=== PATIENT | female | born 1945 | race Caucasian/White ===

== ENCOUNTER → 2017-10-31 | Outpatient (CLI) | payer OTHER ==
[~2017-10-31] MED LIST: ADVA250A INH; ALPR.25 PO; CEPH500C3 PO; HYZA100T2 PO; LEVO.05 PO
--- NOTE | 2017-11-04 08:06 | RSPPFT ---
DATE OF PROCEDURE: 10/31/17 COMMENTS: VOLUMES DYNAMIC: FVC mildly reduced; FEV1 severely reduced. STATIC: FRC and RV moderately increased; TLC normal. FLOWS: FEV1% and FEF 25-75 severely reduced. DIFFUSION: Moderately reduced. FLOW VOLUME LOOP: Pattern of variable intrathoracic airways obstruction. IMPRESSION: Moderately severe to severe obstructive ventilatory defect with reduction in diffusion consistent with emphysema. There is also hyperinflation. There is significant improvement post-bronchodilator.
== END ==
LOC: PHRSP 08:45
PROVIDERS: ATTEND Internal Medicine
DX: J44.9 Chronic obstructive pulmonary disease, unspecified (principal)
CPT/HCPCS: 94060; 94618; 94726; 94729

== ENCOUNTER 2017-11-22 22:24 | Inpatient (IN) | payer OTHER, MEDICARE ==
[~2017-11-22] VITALS: Ht 160 cm; Wt 52.5 kg
[2017-11-22] MEDS ORDERED: IOHEXOL 350 MG/ML 10 ML VIAL (for RAD DIAG) IVCONTRAST ONE (22:25)
[2017-11-22 22:45] VITALS: BP 146/72; PULSE 87; RESP 16; TEMP 98.8; O2SAT 94
[2017-11-22] MEDS ORDERED: SODIUM CHLOR 0.9% 1000 ML INJ 1,000 ML IV SCH (22:52)
[2017-11-22] MEDS ORDERED: MORPHINE SULFATE 4 MG/ML INJ IV PUSH ONE (23:00)
[2017-11-22] MEDS ORDERED: ONDANSETRON HCL 4 MG/2 ML VIAL IVP ONE (23:00)
[2017-11-22] MEDS ORDERED: SODIUM CHLORIDE 0.9% FLUSH 10 ML FLUSH IV FLUSH PRN (23:00)
[2017-11-22 23:21] LABS: AUTOMATED NEUTROPHIL # 8.3 TH/MM3 (1.8-7.7); BASOPHIL # 0.3 TH/MM3 (0-0.2); BASOPHIL % 3.1 % (0.0-2.0); EOSINOPHIL # 0.1 TH/MM3 (0-0.4); EOSINOPHIL % 0.5 % (0.0-4.0); HEMATOCRIT 41.5 % (35.0-46.0); HEMOGLOBIN 13.8 GM/DL (11.6-15.3); LYMPH % 9.5 % (9.0-44.0); MEAN CELL VOLUME 87.8 FL (80.0-100.0); MEAN CORPUSCULAR HEMOGLOBIN 29.1 PG (27.0-34.0); MEAN CORPUSCULAR HGB CONC 33.1 % (32.0-36.0); MEAN PLATELET VOLUME 7.2 FL (7.0-11.0); MONO % 4.9 % (0.0-8.0); MONOCYTE # 0.5 TH/MM3 (0-0.9); PLATELET COUNT 439 TH/MM3 (150-450); RED BLOOD COUNT 4.73 MIL/MM3 (4.00-5.30); RED CELL DISTRIBUTION WIDTH 13.4 % (11.6-17.2); WHITE BLOOD COUNT 10.2 TH/MM3 (4.0-11.0)
[2017-11-22] MEDS ORDERED: ALBU0.63 NEB (23:21)
[2017-11-22] MEDS ORDERED: AMLO5TAB2 PO (23:21)
[2017-11-22] MEDS ORDERED: ALPR0.25 PO (23:21)
[2017-11-22] MEDS ORDERED: CHOL1TAB42 (23:21)
[2017-11-22] MEDS ORDERED: LEVO50TA4 PO (23:21)
[2017-11-22] MEDS ORDERED: HUMIBIDDM PO (23:21)
[2017-11-22] MEDS ORDERED: CYAN1000P IM (23:21)
[2017-11-22] MEDS ORDERED: ALPR0.5T3 PO (23:21)
[2017-11-22] MEDS ORDERED: OMEP20TA93 PO (23:21)
[2017-11-22] MEDS ORDERED: VENTAER INH (23:21)
[2017-11-22] MEDS ORDERED: ADVA100A INH (23:21)
[2017-11-22 23:51] VITALS: BP 142/78; PULSE 97; RESP 18; O2SAT 99
[2017-11-22 23:52] LABS: ALKALINE PHOSPHATASE 98 U/L (45-117); ALT (GPT) 19 U/L (10-53); AST (GOT) 22 U/L (15-37); BLOOD UREA NITROGEN 7 MG/DL (7-18); CALCIUM 9.3 MG/DL (8.5-10.1); CHLORIDE 96 MEQ/L (98-107); GLOMERULAR FILTRATION RATE 98 ML/MIN (>89); GLUCOSE,RANDOM 109 MG/DL (74-106); SODIUM (NA) 133 MEQ/L (136-145); TOTAL BILIRUBIN ADULT 0.6 MG/DL (0.2-1.0); TOTAL PROTEIN 8.1 GM/DL (6.4-8.2); TROPONIN I LESS THAN 0.02 NG/ML (0.02-0.05)
--- NOTE | 2017-11-22 23:54 | PD ---
HPI Chief Complaint: Abdominal Pain Time Seen by Provider: 22:40 Travel History International Travel<30 days: No Contact w/Intl Traveler<30days: No Traveled to known affect area: No History of Present Illness HPI 72-year-old female with a past medical history of Crohn's, COPD, small bowel resection 15 years ago as complications of Crohn's disease presents to the emergency room with epigastric abdominal pain radiating into the back. Pain is moderate in intensity with associated nausea and vomiting however denies diarrhea. Pain started around noon today. Patient denies any history of peptic ulcer disease or AAA. Patient denies any lower extremity pain. Patient denies any chest pain or shortness of breath at this time. Pain is worse with eating PFSH Past Medical History Asthma: Yes Anxiety: Yes Cancer: Yes (RT BREAST>RADIATION) COPD: Yes Gastrointestinal Disorders: Yes (CROHNS) Hypertension: Yes Respiratory: Yes (COPD) Radiation Therapy: Yes Thyroid Disease: Yes Tetanus Vaccination: Unknown Influenza Vaccination: Yes ?: Not Menopausal: Yes Past Surgical History Abdominal Surgery: Yes (COLON RESECTION X 3>CROHNS) Gynecologic Surgery: Yes (RT BREAST CA>LUMPECTOMY, RADIATION 15 YRS AGO) Tonsillectomy: Yes Other Surgery: Yes (RT LYMPH NODES) Social History Alcohol Use: Yes (WINE TWICE PER [facility]) Tobacco Use: No Substance Use: No Allergies-Medications (Allergen,Severity, Reaction): Coded Allergies: No Known Allergies (Verified Allergy, Unknown, 11/23/17) Reported Meds & Prescriptions Reported Meds & Active Scripts Active Reported Mucinex DM (Dextromethorphan-Guaifenesin) 30-600 Mg Tab 1 Tab PO BID PRN Albuterol Neb (Albuterol Sulfate) 0.63 Mg/3 Ml Neb 0.83 Mg NEB Q6HR NEB PRN Alprazolam 0.5 Mg Tab 0.5 Mg PO DAILY PRN Alprazolam 0.25 Mg Tab 0.25 Mg PO DAILY PRN Cyanocobalamin Inj (Cyanocobalamin) 1,000 Mcg/Ml Inj 1,000 Mcg IM Q30D Ventolin Hfa 18 GM Inh (Albuterol Sulfate) 90 Mcg/Act Aer 2 Puff INH Q4-6H PRN Omeprazole 20 Mg Tab 20 Mg PO DAILY Amlodipine (Amlodipine Besylate) 5 Mg Tab 5 Mg PO DAILY Vitamin D-3 (Cholecalciferol) 2,000 Unit Tab Levothyroxine (Levothyroxine Sodium) 50 Mcg Tab 50 Mcg PO DAILY Advair Diskus Inh (Fluticasone-Salmeterol Inh) 100-50 Mcg/Blist Aer 1 Puff INH BID Rinse mouth after use. Review of Systems Except as stated in HPI: all other systems reviewed are Neg General / Constitutional: No: Fever, Chills Eyes: No: Blurred Vision, Redness, Pain HENT: No: Rhinorrhea, Congestion, Neck Stiffness, Neck Pain, Earache Cardiovascular: No: Chest Pain or Discomfort, Palpitations, Dyspnea on exertion Respiratory: No: Cough, Shortness of Breath, Wheezing Gastrointestinal: Positive: Nausea, Vomiting, Abdominal Pain, No: Diarrhea, Hematochezia, Constipation Genitourinary: No: Dysuria Musculoskeletal: Positive: Other (Back pain), No: Myalgias Skin: No Rash, No Hives Neurologic: No: Weakness, Dizziness, Syncope, Headache, Slurred Speech, Seizures Psychiatric: No: Suicidal Ideations Physical Exam Narrative Vital Signs Date Time Temp Pulse Resp B/P (MAP) Pulse Ox O2 Delivery O2 Flow Rate FiO2 11/22/17 22:45 98.8 87 16 146/72 (96) 94 GENERAL: Patient is alert and oriented -3 SKIN: Focused skin assessment warm/dry. HEAD: Atraumatic. Normocephalic. EYES: Pupils equal and round. No scleral icterus. No injection or drainage. ENT: No nasal bleeding or discharge. Mucous membranes pink and moist. NECK: Trachea midline. No JVD. CARDIOVASCULAR: Regular rate and rhythm. No murmur appreciated. RESPIRATORY: No accessory muscle use. Clear to auscultation. Breath sounds equal bilaterally. GASTROINTESTINAL: Abdomen soft, tender epigastric area to palpation without guarding, nondistended. Hepatic and splenic margins not palpable. MUSCULOSKELETAL: No obvious deformities. No clubbing. No cyanosis. No edema. NEUROLOGICAL: Awake and alert. No obvious cranial nerve deficits. Motor grossly within normal limits. Normal speech. PSYCHIATRIC: Appropriate mood and affect; insight and judgment normal. Data Data Last Documented VS Vital Signs Date Time Temp Pulse Resp B/P (MAP) Pulse Ox O2 Delivery O2 Flow Rate FiO2 11/23/17 01:24 85 16 130/67 (88) 97 Room Air 11/22/17 22:45 98.8 Orders Orders Complete Blood Count With Diff (11/22/17 22:52) Comprehensive Metabolic Panel (11/22/17 22:52) Lactic Acid (11/22/17 22:52) Iv Access Insert/Monitor (11/22/17 22:52) Ecg Monitoring (11/22/17 22:52) Oximetry (11/22/17 22:52) Morphine Inj (Morphine Inj) (11/22/17 23:00) Ondansetron Inj (Zofran Inj) (11/22/17 23:00) Sodium Chlor 0.9% 1000 Ml Inj (Ns 1000 M (11/22/17 22:52) Sodium Chloride 0.9% Flush (Ns Flush) (11/22/17 23:00) Electrocardiogram (11/22/17 22:52) Chest, Single Ap (11/22/17 ) Troponin I (11/22/17 22:52) Ct Abd/Pel W Iv Contrast(Rout) (11/23/17 ) Potassium Chloride (Kcl) (11/23/17 00:00) Hydromorphone Pf Inj (Dilaudid Pf Inj) (11/23/17 00:15) Iohexol 350 Inj (Omnipaque 350 Inj) (11/22/17 22:25) Us Abdomen Gallbladder (11/23/17 ) Ondansetron Inj (Zofran Inj) (11/23/17 01:30) Admit Order (Ed Use Only) (11/23/17 01:42) Dextrose 5%-Lactate... W/Potassium Chlor (11/23/17 01:45) Potassium Chlor 10 Meq Premix (Kcl 10 Me (11/23/17 01:45) Place In Observation (11/23/17 ) Vital Signs (Adult) Q4H (11/23/17 01:40) Activity Oob With Assistance (11/23/17 01:40) Diet Npo (11/23/17 Breakfast) Sodium Chlor 0.9% 1000 Ml Inj (Ns 1000 M (11/23/17 01:40) Sodium Chloride 0.9% Flush (Ns Flush) (11/23/17 01:45) Sodium Chloride 0.9% Flush (Ns Flush) (11/23/17 09:00) Ondansetron Inj (Zofran Inj) (11/23/17 01:45) Comprehensive Metabolic Panel (11/24/17 06:00) Complete Blood Count With Diff (11/24/17 06:00) Naloxone Inj (Narcan Inj) (11/23/17 01:45) Docusate Sodium-Senna (Ignacia-Colace) (11/23/17 09:00) Magnesium Hydroxide Liq (Milk Of Magnesi (11/23/17 01:45) Sennosides (Senokot) (11/23/17 01:45) Bisacodyl Supp (Dulcolax Supp) (11/23/17 01:45) Lactulose Liq (Lactulose Liq) (11/23/17 01:45) Hydromorphone Pf Inj (Dilaudid Pf Inj) (11/23/17 01:45) Labs Laboratory Tests Test 11/22/17 23:10 White Blood Count 10.2 TH/MM3 Red Blood Count 4.73 MIL/MM3 Hemoglobin 13.8 GM/DL Hematocrit 41.5 % Mean Corpuscular Volume 87.8 FL Mean Corpuscular Hemoglobin 29.1 PG Mean Corpuscular Hemoglobin Concent 33.1 % Red Cell Distribution Width 13.4 % Platelet Count 439 TH/MM3 Mean Platelet Volume 7.2 FL Neutrophils (%) (Auto) 82.0 % Lymphocytes (%) (Auto) 9.5 % Monocytes (%) (Auto) 4.9 % Eosinophils (%) (Auto) 0.5 % Basophils (%) (Auto) 3.1 % Neutrophils # (Auto) 8.3 TH/MM3 Lymphocytes # (Auto) 1.0 TH/MM3 Monocytes # (Auto) 0.5 TH/MM3 Eosinophils # (Auto) 0.1 TH/MM3 Basophils # (Auto) 0.3 TH/MM3 CBC Comment DIFF FINAL Differential Comment Blood Urea Nitrogen 7 MG/DL Creatinine 0.60 MG/DL Random Glucose 109 MG/DL Total Protein 8.1 GM/DL Albumin 4.0 GM/DL Calcium Level 9.3 MG/DL Alkaline Phosphatase 98 U/L Aspartate Amino Transf (AST/SGOT) 22 U/L Alanine Aminotransferase (ALT/SGPT) 19 U/L Total Bilirubin 0.6 MG/DL Sodium Level 133 MEQ/L Potassium Level 2.8 MEQ/L Chloride Level 96 MEQ/L Carbon Dioxide Level 27.0 MEQ/L Anion Gap 10 MEQ/L Estimat Glomerular Filtration Rate 98 ML/MIN Lactic Acid Level 0.9 mmol/L Troponin I LESS THAN 0.02 NG/ML Last 24 hours Impressions Gall Bladder Ultrasound 11/23/17 Signed Impressions: CONCLUSION: Abnormal appearance of gallbladder. Cholelithiasis along with wall thickening a nd a small amount of pericholecystic fluid. Constellation of findings may be se en with acute cholecystitis in the proper clinical setting. Abdomen/Pelvis CT 11/23/17 Signed Impressions: CONCLUSION: 1. Distended gallbladder with diffuse wall thickening indicating possible chol ecystitis. Ultrasound could performed for more sensitive detection of gallstone s. 2. Mild distal ileal wall thickening and with minimal adjacent inflammatory ch radha. 3. Diffuse atherosclerotic disease with mild relative dilatation of the distal abdominal aorta measuring up to 2.5 cm in diameter. Chest X-Ray 11/22/17 Signed Impressions: CONCLUSION: No acute cardiopulmonary disease identified. MDM Medical Decision Making Medical Screen Exam Complete: Yes Emergency Medical Condition: Yes Medical Record Reviewed: Yes Differential Diagnosis Peptic ulcer disease, Crohn's, gallbladder disease, AAA, gastroenteritis, small bowel obstruction, ACS, Narrative Course Patient continued to have nausea vomiting and abdominal pain. Patient will be admitted to medicine for acute cholecystitis and intractable vomiting. Physician Communication Physician Communication Case has been discussed with Dr. Stephens and she accepted admission Diagnosis Primary Impression: Acute cholecystitis Additional Impressions: Intractable vomiting Hypokalemia Condition: Lloyd Gomez MD Nov 22, 2017 23:54
[2017-11-23] VITALS (13 sets, daily range): BP systolic 119–162; BP diastolic 63–71; PULSE 85–106; RESP 16–22; TEMP 96.7–100; O2SAT 91–97
[2017-11-23] MEDS ORDERED: HYDROmorphone HCL PF 1 MG/ML VIAL IV PUSH ONE
[2017-11-23] MEDS ORDERED: POTASSIUM CHLORIDE 20 MEQ CONTROLLED RELEASE TAB PO ONE
[2017-11-23] MEDS ORDERED: HYDROmorphone HCL PF 0.5 MG/0.5 ML SYRINGE IV PUSH ONE (00:15)
--- NOTE | 2017-11-23 00:29 | RADRPT ---
EXAM DATE: 11/23/2017 12:20 AM EDT AGE/SEX: 72 years / Female INDICATIONS: Abdominal pain. History of Croh's disease. CLINICAL DATA: This is the patient's initial encounter. Patient reports that signs and symptoms have been present for 1 day and indicates a pain score of 8/10. MEDICAL/SURGICAL HISTORY: Hypertension. Chronic obstructive pulmonary disease. Carcinoma, stoney ast. Colon resection. Right lumpectomy ORAL CONTRAST: No oral contrast ingested. RADIATION DOSE: 5.98 CTDI (mGy) COMPARISON: No prior exams available for comparison. TECHNIQUE: Multiple contiguous axial images were obtained through the abdomen and pelvis following b olus infusion of 90 ml Omnipaque 350 (iohexol) nonionic water-soluble contrast as a single exam dos e. No oral contrast ingested. Using automated exposure control and adjustment of the mA and/or kV ac cording to patient size, the radiation dose was kept as low as reasonably achievable to obtain optima l diagnostic quality images. FINDINGS: Lower Lungs: The visualized lower lungs are clear. Liver: Distended gallbladder with diffuse wall thickening measuring up to 6 mm. No calcified gallston es identified. The liver has a homogeneous density without space-occupying lesion. There is no dilati on of the biliary tree. Spleen: Homogeneous density without enlargement. Pancreas: Unremarkable without mass or calcification. Kidneys: Normal in size and shape. No evidence of mass or hydronephrosis. Adrenal Glands: Unremarkable. Aorta: Diffuse aortic calcification. Distal abdominal aorta shows mild relative dilatation but anthony ures 2.5 cm in greatest AP dimension that does not meet size criteria for aneurysm. Bowel/Mesentery: Mild nonspecific wall thickening of the distal ileum with mild stranding opacity in the adjacent fat. No evidence of bowel dilatation. No free air or free fluid. Postsurgical findings of the cecum. Abdominal Wall: Intact. Retroperitoneum: No evidence of adenopathy in the retrocrural, para-aortic, or deep pelvic regions. Bladder: Contours are smooth. Reproductive Organs: No abnormal masses or calcifications seen. Inguinal: The inguinal region is unremarkable without evidence of adenopathy. Bony Structures: Unremarkable. CONCLUSION: 1. Distended gallbladder with diffuse wall thickening indicating possible cholecystitis. Ultrasound could performed for more sensitive detection of gallstones. 2. Mild distal ileal wall thickening and with minimal adjacent inflammatory change. 3. Diffuse atherosclerotic disease with mild relative dilatation of the distal abdominal aorta measu ring up to 2.5 cm in diameter. Electronically signed by: Vicente Kendrick MD 11/23/2017 12:28 AM EDT
--- NOTE | 2017-11-23 00:39 | RADRPT ---
EXAM DATE: 11/23/2017 12:32 AM EDT AGE/SEX: 72 years / Female INDICATIONS: Chest pain. CLINICAL DATA: This is the patient's initial encounter. Patient reports that signs and symptoms have been present for 1 day and indicates a pain score of 4/10. MEDICAL/SURGICAL HISTORY: None. None. COMPARISON: POI, XR CHEST PA AND LAT, 01/25/2017. . FINDINGS: Single AP view of the chest. The lungs are clear. Cardiomediastinal silhouette within norm al limits. No evidence of pleural effusion or pneumothorax. CONCLUSION: No acute cardiopulmonary disease identified. Electronically signed by: Vicente Kendrick MD 11/23/2017 12:38 AM EDT
[2017-11-23] MEDS ORDERED: ONDANSETRON HCL 4 MG/2 ML VIAL IV PUSH ONE (01:30)
[2017-11-23] MEDS ORDERED: HYDROmorphone HCL PF 1 MG/ML VIAL IV PUSH PRN (01:45)
[2017-11-23] MEDS ORDERED: BISACODYL 10 MG SUPP RECTAL PRN (01:45)
[2017-11-23] MEDS ORDERED: LACTULOSE SYRUP 20 GM/30 ML CUP PO PRN (01:45)
[2017-11-23] MEDS ORDERED: SENNOSIDES 8.6 MG TAB PO PRN (01:45)
[2017-11-23] MEDS ORDERED: SODIUM CHLORIDE 0.9% FLUSH 10 ML FLUSH IV FLUSH PRN (01:45)
[2017-11-23] MEDS ORDERED: POTASSIUM CHLORIDE IV SCH (01:45)
[2017-11-23] MEDS ORDERED: NALOXONE HCL 0.4 MG/ML AMP IV PUSH PRN (01:45)
[2017-11-23] MEDS ORDERED: LACTATED RING IV SCH (01:45)
[2017-11-23] MEDS ORDERED: MAGNESIUM HYDROXIDE SUSP 30 ML CUP PO PRN (01:45)
[2017-11-23] MEDS ORDERED: DEXTROSE 5% IV SCH (01:45)
[2017-11-23] MEDS: SODIUM CHLOR 0.9% 1000 ML INJ 1,000 ML IV SCH ×2 (02:29→17:19)
[2017-11-23] MEDS: POTASSIUM CHLOR 10 MEQ PREMIX 100 ML IV SCH ×3 (02:29→05:49)
[2017-11-23] MEDS: ONDANSETRON HCL 4 MG/2 ML VIAL IVP PRN ×2 (02:35→16:27)
--- NOTE | 2017-11-23 03:03 | RADRPT ---
EXAM DATE: 11/23/2017 2:54 AM EDT AGE/SEX: 72 years / Female INDICATIONS: Right upper quadrant pain. CLINICAL DATA: This is the patient's initial encounter. Patient reports that signs and/or symptoms h ave been present for 1 day and indicates a pain score of 7/10. MEDICAL/SURGICAL HISTORY: Crohn's disease. Hypertension. Chronic obstructive pulmonary disease. Ca rcinoma, breast. . Colon resection. Right lumpectomy COMPARISON: No prior exams available for comparison. MEASUREMENTS (cm x cm x cm): Liver:__ 18.3 cm length Common Bile Duct:__ 4mm FINDINGS: Liver: Normal echotexture without focal lesion or ductal dilatation. Portal Vein: Hepatopedal flow seen in portal vein. Common Duct: No intraluminal mass or stone visualized. Gallbladder: Multiple small mobile shadowing gallstones at the dependent portion of the gallbladder. Layering sludge is also seen at the dependent portion of the gallbladder. Gallbladder wall thickenin g is seen measuring up to 4 mm. Small amount of pericholecystic fluid also noted. Pancreas: The visualized portions are within normal limits Right Kidney: No mass or hydronephrosis Other: None. CONCLUSION: Abnormal appearance of gallbladder. Cholelithiasis along with wall thickening and a small amount of p ericholecystic fluid. Constellation of findings may be seen with acute cholecystitis in the proper cl inical setting. Electronically signed by: Vicente Kendrick MD 11/23/2017 3:02 AM EDT
[2017-11-23] MEDS ORDERED: PROCHLORPERAZINE INJ 10 MG/2 ML VIAL IV PUSH PRN (03:30)
[2017-11-23] MEDS: PIPERACIL-TAZO 3.375 GM PREMIX 50 ML IV SCH ×4 (04:15→22:30)
[2017-11-23] MEDS: HYDROmorphone HCL PF 0.5 MG/0.5 ML SYRINGE IV PUSH PRN ×4 (06:39→22:26)
--- NOTE | 2017-11-23 08:12 | PD.CONS ---
cc: Heath Rea MD HPI Service General Surgery Consult Requested By Dr. Stephens Reason for Consult Acute cholecystitis Primary Care Physician Sujata Byers Do, MD Past Family Social History Allergies: Coded Allergies: No Known Allergies (Verified Allergy, Unknown, 11/23/17) Active Ordered Medications Current Medications Medications (Trade) Dose Ordered Sig/Michelle Route Start Time Stop Time Status Last Admin Sodium Chloride 1,000 ml @ 70 mls/hr [id number] IV 11/23/17 01:40 11/23/17 02:29 (NS Flush) 2 ml UNSCH PRN IV FLUSH 11/23/17 01:45 (NS Flush) 2 ml BID IV FLUSH 11/23/17 09:00 (Zofran Inj) 4 mg Q6H PRN IVP 11/23/17 01:45 11/23/17 02:35 (Narcan Inj) 0.4 mg UNSCH PRN IV PUSH 11/23/17 01:45 (Ignacia-Colace) 1 tab BID PO 11/23/17 09:00 (Milk Of Magnesia Liq) 30 ml Q12H PRN PO 11/23/17 01:45 (Senokot) 17.2 mg Q12H PRN PO 11/23/17 01:45 (Dulcolax Supp) 10 mg DAILY PRN RECTAL 11/23/17 01:45 (Lactulose Liq) 30 ml DAILY PRN PO 11/23/17 01:45 (Dilaudid Pf Inj) 0.5 mg Q4H PRN IV PUSH 11/23/17 02:00 11/23/17 06:39 Piperacillin Sod/ Tazobactam Sod 50 ml @ 100 mls/hr Q6H IV 11/23/17 04:00 11/23/17 04:15 (Compazine Inj) 10 mg Q6H PRN IV PUSH 11/23/17 03:30 11/23/17 03:39 Physical Exam Vital Signs Vital Signs Date Time Temp Pulse Resp B/P (MAP) Pulse Ox O2 Delivery O2 Flow Rate FiO2 11/23/17 08:02 99.5 97 20 139/65 (89) 94 11/23/17 07:42 11/23/17 07:07 98.9 92 16 119/ 94 Nasal Cannula 2.00 11/23/17 05:33 94 16 137/71 (93) 96 Room Air 11/23/17 03:41 90 16 149/68 (95) 96 Nasal Cannula 2.00 11/23/17 01:24 85 16 130/67 (88) 97 Room Air 11/23/17 00:37 18 11/23/17 00:36 102 18 162/69 (100) 97 Room Air 11/22/17 23:51 18 99 Room Air 11/22/17 23:51 97 18 142/78 (99) 99 Room Air 11/22/17 23:50 18 11/22/17 22:45 98.8 87 16 146/72 (96) 94 Laboratory Laboratory Tests Test 11/22/17 23:10 White Blood Count 10.2 Red Blood Count 4.73 Hemoglobin 13.8 Hematocrit 41.5 Mean Corpuscular Volume 87.8 Mean Corpuscular Hemoglobin 29.1 Mean Corpuscular Hemoglobin Concent 33.1 Red Cell Distribution Width 13.4 Platelet Count 439 Mean Platelet Volume 7.2 Neutrophils (%) (Auto) 82.0 Lymphocytes (%) (Auto) 9.5 Monocytes (%) (Auto) 4.9 Eosinophils (%) (Auto) 0.5 Basophils (%) (Auto) 3.1 Neutrophils # (Auto) 8.3 Lymphocytes # (Auto) 1.0 Monocytes # (Auto) 0.5 Eosinophils # (Auto) 0.1 Basophils # (Auto) 0.3 CBC Comment DIFF FINAL Differential Comment Blood Urea Nitrogen 7 Creatinine 0.60 Random Glucose 109 Total Protein 8.1 Albumin 4.0 Calcium Level 9.3 Alkaline Phosphatase 98 Aspartate Amino Transf (AST/SGOT) 22 Alanine Aminotransferase (ALT/SGPT) 19 Total Bilirubin 0.6 Sodium Level 133 Potassium Level 2.8 Chloride Level 96 Carbon Dioxide Level 27.0 Anion Gap 10 Estimat Glomerular Filtration Rate 98 Lactic Acid Level 0.9 Troponin I LESS THAN 0.02 Result Diagram: 11/22/17230911/22/172309 Assessment and Plan Assessment and Plan 72 year old female with acute cholecystitis -Plan for OR this afternoon with Dr. Rona -Remain NPO -Obtain consents -IVF -Pain control -Recheck serum potassium level Discussed Condition With Lorie Hood Ms./[employer] FREEMAN Nov 23, 2017 08:12
[2017-11-23] MEDS: SODIUM CHLORIDE 0.9% FLUSH 10 ML FLUSH IV FLUSH SCH ×2 (09:00→20:07)
--- NOTE | 2017-11-23 09:05 | EKG ---
Date Performed: 11/22/2017 Time Performed: 23:03:53 PTAGE: 72 years EKG: Sinus rhythm MODERATE ST DEPRESSION ABNORMAL ECG NO PREVIOUS TRACING DOCTOR: Abhijit Marcum Interpretating Date/Time 11/23/2017 09:04:41
--- NOTE | 2017-11-23 09:17 | HHI.HP ---
[facility] Sujata Byers Do, MD Admission Diagnosis ACUTE CHOLECYSTITIS, VOMITING, HYPOKALEMIA Diagnoses: (1) Acute cholecystitis (2) Hypokalemia (3) Intractable vomiting Chief Complaint: Abdominal pain Travel History International Travel<30 Days: No Contact w/Intl Traveler <30 Da: No Traveled to Known Affected Are: No History of Present Illness This is a pleasant 72-year-old female patient with a known medical history of COPD, HTN, hyperlipidemia, Crohn's disease status post small bowel resection x 3 and history of breast cancer with lumpectomy and radiation who presented to the ED with complaints of worsening epigastric abdominal pain. Patient states that she was in her normal state of health up until yesterday morning prior to eating breakfast when she developed an epigastric pain that radiated to her back , was characterized as burning in nature, rated at 10 out of 10 at its worst on pain scale, and did admit to associated nausea and vomiting with the pain. She states she has been unable to eat anything all day yesterday, attempted to eat something small for dinner which actually worsened the pain. Patient denies any recent black or bloody stools. Does admit to good appetite. Denies any recent diarrhea. Denies any recent fever, chills, headache, chest pain, shortness of breath, dysuria. PCP is Dr. Bhardwaj, last seen 2 months ago with no changes to her medicines. Patient follows with roasterman, Dr. Glass, for management of her COPD. Does admit to a history of right breast cancer with history of lumpectomy and lymph node removal as well as radiation in 1994. Review of Systems Constitutional: COMPLAINS OF: Fatigue, DENIES: Fever, Chills Eyes: DENIES: Diplopia Ears, nose, mouth, throat: DENIES: Vertigo Respiratory: DENIES: Cough, Sputum production, Shortness of breath Cardiovascular: DENIES: Chest pain, Palpitations, Lower Extremity Edema Gastrointestinal: COMPLAINS OF: Abdominal pain, Nausea, Vomiting, DENIES: Black stools, Bloody stools, Constipation, Diarrhea Musculoskeletal: DENIES: Joint pain Hematologic/lymphatic: DENIES: Bruising Immunologic/allergic: DENIES: Eczema Neurologic: DENIES: Abnormal gait Psychiatric: DENIES: Anxiety Except as stated in HPI: all other systems reviewed are Neg Past Family Social History Past Medical History Asthma Anxiety History of right breast cancer with lumpectomy and lymph node removal in 1994 COPD History of Crohn's disease with colon resection x3 Hypertension Thyroid disease Past Surgical History Colon resection x3 Right breast lumpectomy with lymph node removal and radiation in 1994 Tonsillectomy Reported Medications Active Reported Mucinex DM (Dextromethorphan-Guaifenesin) 30-600 Mg Tab 1 Tab PO BID PRN Albuterol Neb (Albuterol Sulfate) 0.63 Mg/3 Ml Neb 0.83 Mg NEB Q6HR NEB PRN Alprazolam 0.5 Mg Tab 0.5 Mg PO DAILY PRN Alprazolam 0.25 Mg Tab 0.25 Mg PO DAILY PRN Cyanocobalamin Inj (Cyanocobalamin) 1,000 Mcg/Ml Inj 1,000 Mcg IM Q30D Ventolin Hfa 18 GM Inh (Albuterol Sulfate) 90 Mcg/Act Aer 2 Puff INH Q4-6H PRN Omeprazole 20 Mg Tab 20 Mg PO DAILY Amlodipine (Amlodipine Besylate) 5 Mg Tab 5 Mg PO DAILY Vitamin D-3 (Cholecalciferol) 2,000 Unit Tab Levothyroxine (Levothyroxine Sodium) 50 Mcg Tab 50 Mcg PO DAILY Advair Diskus Inh (Fluticasone-Salmeterol Inh) 100-50 Mcg/Blist Aer 1 Puff INH BID Rinse mouth after use. Allergies: Coded Allergies: No Known Allergies (Verified Allergy, Unknown, 11/23/17) Active Ordered Medications Current Medications Medications (Trade) Dose Ordered Sig/Michelle Route Start Time Stop Time Status Last Admin Sodium Chloride 1,000 ml @ 70 mls/hr [id number] IV 11/23/17 01:40 11/23/17 02:29 (NS Flush) 2 ml UNSCH PRN IV FLUSH 11/23/17 01:45 (NS Flush) 2 ml BID IV FLUSH 11/23/17 09:00 (Zofran Inj) 4 mg Q6H PRN IVP 11/23/17 01:45 11/23/17 02:35 (Narcan Inj) 0.4 mg UNSCH PRN IV PUSH 11/23/17 01:45 (Ignacia-Colace) 1 tab BID PO 11/23/17 09:00 (Milk Of Magnesia Liq) 30 ml Q12H PRN PO 11/23/17 01:45 (Senokot) 17.2 mg Q12H PRN PO 11/23/17 01:45 (Dulcolax Supp) 10 mg DAILY PRN RECTAL 11/23/17 01:45 (Lactulose Liq) 30 ml DAILY PRN PO 11/23/17 01:45 (Dilaudid Pf Inj) 0.5 mg Q4H PRN IV PUSH 11/23/17 02:00 11/23/17 06:39 Piperacillin Sod/ Tazobactam Sod 50 ml @ 100 mls/hr Q6H IV 11/23/17 04:00 11/23/17 04:15 (Compazine Inj) 10 mg Q6H PRN IV PUSH 11/23/17 03:30 11/23/17 03:39 Family History Mother had a history of stroke. Denies any significant family medical history on her father's side. Social History Denies any tobacco abuse. Does admit to drinking 1 glass of wine every evening. Denies any illicit drug use. Physical Exam Vital Signs Vital Signs Date Time Temp Pulse Resp B/P (MAP) Pulse Ox O2 Delivery O2 Flow Rate FiO2 11/23/17 08:02 99.5 97 20 139/65 (89) 94 11/23/17 07:42 11/23/17 07:07 98.9 92 16 119/ 94 Nasal Cannula 2.00 11/23/17 05:33 94 16 137/71 (93) 96 Room Air 11/23/17 03:41 90 16 149/68 (95) 96 Nasal Cannula 2.00 11/23/17 01:24 85 16 130/67 (88) 97 Room Air 11/23/17 00:37 18 11/23/17 00:36 102 18 162/69 (100) 97 Room Air 11/22/17 23:51 18 99 Room Air 11/22/17 23:51 97 18 142/78 (99) 99 Room Air 11/22/17 23:50 18 11/22/17 22:45 98.8 87 16 146/72 (96) 94 Physical Exam GENERAL: Well-developed, well-nourished patient in NAD. On supplemental O2. SKIN: Warm and dry. No rash. HEAD: Normocephalic. Atraumatic. EYES: Pupils equal and round. No scleral icterus. No injection or drainage. ENT: No nasal bleeding or discharge. Mucous membranes pink and moist. NECK: Supple. Trachea midline. CARDIOVASCULAR: Regular rate and rhythm. S1, S2 noted. No murmur appreciated. No chest pain to palpation. RESPIRATORY: No accessory muscle use. Clear to auscultation. Breath sounds equal bilaterally. GASTROINTESTINAL: Abdomen soft, nondistended. Normoactive bowel sounds x4. Abdomen tender in epigastric area. Positive Lee sign. MUSCULOSKELETAL: No obvious deformities. Extremities without clubbing, cyanosis , or edema. NEUROLOGICAL: Awake and alert. No obvious cranial nerve deficits. Motor grossly within normal limits. 5/5 muscle strength in bilateral upper and lower extremities. Normal speech. PSYCHIATRIC: Appropriate mood and affect; insight and judgment normal. Laboratory Laboratory Tests Test 11/22/17 23:10 White Blood Count 10.2 Red Blood Count 4.73 Hemoglobin 13.8 Hematocrit 41.5 Mean Corpuscular Volume 87.8 Mean Corpuscular Hemoglobin 29.1 Mean Corpuscular Hemoglobin Concent 33.1 Red Cell Distribution Width 13.4 Platelet Count 439 Mean Platelet Volume 7.2 Neutrophils (%) (Auto) 82.0 Lymphocytes (%) (Auto) 9.5 Monocytes (%) (Auto) 4.9 Eosinophils (%) (Auto) 0.5 Basophils (%) (Auto) 3.1 Neutrophils # (Auto) 8.3 Lymphocytes # (Auto) 1.0 Monocytes # (Auto) 0.5 Eosinophils # (Auto) 0.1 Basophils # (Auto) 0.3 CBC Comment DIFF FINAL Differential Comment Blood Urea Nitrogen 7 Creatinine 0.60 Random Glucose 109 Total Protein 8.1 Albumin 4.0 Calcium Level 9.3 Alkaline Phosphatase 98 Aspartate Amino Transf (AST/SGOT) 22 Alanine Aminotransferase (ALT/SGPT) 19 Total Bilirubin 0.6 Sodium Level 133 Potassium Level 2.8 Chloride Level 96 Carbon Dioxide Level 27.0 Anion Gap 10 Estimat Glomerular Filtration Rate 98 Lactic Acid Level 0.9 Troponin I LESS THAN 0.02 Result Diagram: 11/22/17230911/22/17 2310 Imaging Last Impressions Gall Bladder Ultrasound 11/23/17 0000 Signed Impressions: CONCLUSION: Abnormal appearance of gallbladder. Cholelithiasis along with wall thickening a nd a small amount of pericholecystic fluid. Constellation of findings may be se en with acute cholecystitis in the proper clinical setting. Abdomen/Pelvis CT 11/23/17 Signed Impressions: CONCLUSION: 1. Distended gallbladder with diffuse wall thickening indicating possible chol ecystitis. Ultrasound could performed for more sensitive detection of gallstone s. 2. Mild distal ileal wall thickening and with minimal adjacent inflammatory ch radha. 3. Diffuse atherosclerotic disease with mild relative dilatation of the distal abdominal aorta measuring up to 2.5 cm in diameter. Chest X-Ray 11/22/17 Signed Impressions: CONCLUSION: No acute cardiopulmonary disease identified. Septic Shock Reassessment Septic shock perfusion: reassessment completed Caprini VTE Risk Assessment Caprini VTE Risk Assessment: Mod/High Risk (score >= 2) Caprini Risk Assessment Model Point Value = 1 Point Value = 2 Point Value = 3 Point Value = 5 Age 41-60 Minor surgery BMI > 25 kg/m2 Swollen legs Varicose veins or History of unexplained or recurrent spontaneous Oral contraceptives or hormone replacement Sepsis (< 1 month) Serious lung disease, including pneumonia (< 1 month) Abnormal pulmonary function Acute myocardial infarction Congestive heart failure (< 1 month) History of inflammatory bowel disease Medical patient at bed rest Age 61-74 Arthroscopic surgery Major open surgery (> 45 min) Laparoscopic surgery (> 45 min) Malignancy Confined to bed (> 72 hours) Immobilizing plaster cast Central venous access Age >= 75 History of VTE Family history of VTE Factor V Leiden Prothrombin [id number] Lupus anticoagulant Anticardiolipin antibodies Elevated serum homocysteine Heparin-induced thrombocytopenia Other congenital or acquired thrombophilia Stroke (< 1 month) Elective arthroplasty Hip, pelvis, or leg fracture Acute spinal cord injury (< 1 month) Prophylaxis Regimen Total Risk Factor Score Risk Level Prophylaxis Regimen 0-1 Low Early ambulation 2 Moderate Order ONE of the following: *Sequential Compression Device (SCD) *Heparin 5000 units SQ BID 3-4 Higher Order ONE of the following medications: *Heparin 5000 units SQ TID *Enoxaparin/Lovenox 40 mg SQ daily (WT < 150 kg, CrCl > 30 mL/min) *Enoxaparin/Lovenox 30 mg SQ daily (WT < 150 kg, CrCl > 10-29 mL/min) *Enoxaparin/Lovenox 30 mg SQ BID (WT < 150 kg, CrCl > 30 mL/min) AND/OR *Sequential Compression Device (SCD) 5 or more Highest Order ONE of the following medications: *Heparin 5000 units SQ TID (Preferred with Epidurals) *Enoxaparin/Lovenox 40 mg SQ daily (WT < 150 kg, CrCl > 30 mL/min) *Enoxaparin/Lovenox 30 mg SQ daily (WT < 150 kg, CrCl > 10-29 mL/min) *Enoxaparin/Lovenox 30 mg SQ BID (WT < 150 kg, CrCl > 30 mL/min) AND *Sequential Compression Device (SCD) Assessment and Plan Problem List: (1) Acute cholecystitis ICD Code: K81.0 - Acute cholecystitis Status: Acute (2) Intractable vomiting ICD Code: R11.10 - Vomiting, unspecified Status: Acute (3) Hypokalemia ICD Code: E87.6 - Hypokalemia Status: Acute Assessment and Plan This is a pleasant 72-year-old female patient with a known medical history of COPD, HTN, hyperlipidemia, Crohn's disease status post small bowel resection x 3 and history of breast cancer with lumpectomy and radiation who presented to the ED with complaints of worsening epigastric abdominal pain. Acute cholecystitis with presence of abdominal pain, nausea and vomiting - Abdomen/pelvis CT reviewed showing distended gallbladder with diffuse wall thickening. Gallbladder ultrasound showing cholelithiasis and small amount of pericholecystic fluid. - Consult placed to general surgery, input and recommendations appreciated. Plan for cholecystectomy this afternoon at 2 PM. - Keep patient n.p.o. Ensure hydration, continue IV fluid. - Will continue Zosyn for now. Patient is afebrile. No leukocytosis. No indication of infection at this time. - Pain control with Dilaudid IV as needed for pain scale. - Supportive care Hypokalemia suspect secondary to vomiting - Potassium 2.8 on presentation. Replacement ordered. We will recheck potassium level this morning. Follow. - Replace as needed. Follow BMP. - Compazine available for nausea and vomiting as well as Zofran as needed. COPD not in exacerbation - Will continue home inhalers. - Patient is requiring supplemental O2, hypoxia is likely secondary to pain medications. Will continue to monitor. Hypertension, chronic: Will continue home medications. Monitor blood pressure trends. Hypothyroidism, chronic: Will continue home levothyroxine. DVT prophylaxis: SCDs. Gifty Mix Nov 23, 2017 09:17
[2017-11-23] MEDS ORDERED: ALBUTEROL SULFATE 90 MCG/ACT HFA 8 GM INHALER INH PRN (09:45)
[2017-11-23] MEDS ORDERED: NON-FORMULARY DRUG (Dextromethorphan-Guaifenesin (Mucinex DM) 1 TAB) PO PRN (09:45)
[2017-11-23] MEDS: DOCUSATE SODIUM 50 MG/SENNA 8.6 MG TAB PO SCH ×2 (09:49→20:06)
[2017-11-23] MEDS ORDERED: fentaNYL CITRATE 250 MCG/5 ML AMP ONE (13:27)
[2017-11-23] MEDS ORDERED: LACTATED RINGER'S 1000 ML IV PRN (13:45)
[2017-11-23] MEDS ORDERED: SODIUM CHLORID 0.9% 500 ML IV PRN (13:45)
[2017-11-23] MEDS ORDERED: METOPROLOL TARTRATE 25 MG TAB PO PRN (13:45)
[2017-11-23] MEDS ORDERED: CHLORHEXIDINE GLUCONATE 2 % 1 PACK (2 CLOTHS) TOPICAL PRN (13:45)
[2017-11-23] MEDS ORDERED: POVIDONE IODINE 5% (ANTISEPSIS KIT) 4 APPLICATIONS EACH NARE PRN (13:45)
[2017-11-23] MEDS: BUPIVACAINE/EPINEPHRINE 0.5% PF 30 ML VIAL ONE ×2 (14:34→15:21)
--- NOTE | 2017-11-23 16:16 | MP ---
cc: Heath Rea MD DATE OF OPERATION: PREOPERATIVE DIAGNOSES: Cholelithiasis, cholecystitis. POSTOPERATIVE DIAGNOSES: Cholelithiasis, cholecystitis, adhesions from previous multiple abdominal surgeries. PROCEDURE: 1. Laparoscopic lysis of adhesions. 2. Laparoscopic cholecystectomy. ANESTHESIA: General. SURGEON: Dr. Rea. CELL LINER: Ms. Gifty Mix, Advanced Registered Nurse Practitioner. INDICATION: A pleasant 72-year-old female who was admitted to the hospital recently with acute cholecystitis, severe intractable nausea and vomiting. CT scan ultrasound showed a fairly inflamed gallbladder. Plans were made for the above. Of note, she has had previous abdominal surgeries for Crohn's disease, which will make this an unusual case because of the numerous abdominal surgeries that she has had, I anticipate multiple adhesions from her 3 previous abdominal surgeries. PROCEDURE: The patient was taken to the operating room and placed in supine position. After anesthesia, a timeout was done. She is given antibiotics. We made an incision just below the xiphoid where she does not have a scar. We were able to enter the abdomen and we entered just on the left side of the falciform. The balloon trocar was introduced. There were some adhesions along the midline from her previous abdominal surgeries. We were able to place a 5 mm port in the midline. Using this 5 mm port, we were able to facilitate dissection of adhesions in the right lower quadrant and around the umbilicus to further expose the anterior abdominal wall, so we can place a 5 mm trocar just to the left of the umbilicus. The camera was then placed through the umbilicus port. The gallbladder could be seen, is obviously inflamed, very tense, with simple grasping it ruptured and clear cloudy bile returns consistent with chronic cystic duct obstruction. We are able to grasp the gallbladder superiorly and laterally, identifying the cystic duct and cystic artery, both of which were doubly ligated and transected. The gallbladder did tear a little bit and some small stones were spilled, but easily evacuated. We were then able to dissect the gallbladder off the gallbladder bed and placed in EndoCatch and pulled out through the subxiphoid incision and passed off the field. We then placed our trocars. Meticulous hemostasis was assured. We again checked our dissection site, identified the cystic duct and cystic artery. Liver is smooth. Peritoneal surfaces were smooth. No other gross abnormalities seen. We checked our dissection site of the adhesions and there was no associated complication with dissecting these adhesions down. She still has a fair amount in the right side of her abdomen, which were left alone. The trocars were then removed. The subxiphoid incision was closed with 0 Vicryl and skin at all 3 sites was closed with a 4-0 Vicryl. Steri-Strips were applied. Sterile bandage was applied. The patient tolerated the procedure well and had no immediate postop complication. Heath Rea MD JDB/TL , 03:41 PM , 04:04 PM
[2017-11-23] MEDS: BUDESONIDE-FORMOTEROL 80/4.5 MCG INHALER INH SCH (20:07)
[2017-11-23] MEDS: RESP: ALBUTEROL 2.5 MG/3 ML NEB (PRN) INH (20:31)
[2017-11-24] VITALS (7 sets, daily range): BP systolic 121–143; BP diastolic 59–65; PULSE 104–120; RESP 18–20; TEMP 98.1–99.1; O2SAT 93–98
[2017-11-24] MEDS: HYDROmorphone HCL PF 0.5 MG/0.5 ML SYRINGE IV PUSH PRN ×3 (02:24→12:40)
[2017-11-24] MEDS: PIPERACIL-TAZO 3.375 GM PREMIX 50 ML IV SCH ×4 (04:28→22:50)
[2017-11-24 05:45] LABS: AUTOMATED NEUTROPHIL # 11.8 TH/MM3 (1.8-7.7); BASOPHIL % 0.1 % (0.0-2.0); EOSINOPHIL % 0.1 % (0.0-4.0); HEMATOCRIT 33.1 % (35.0-46.0); HEMOGLOBIN 11.7 GM/DL (11.6-15.3); LYMPHOCYTE # 0.7 TH/MM3 (1.0-4.8); MEAN CELL VOLUME 86.3 FL (80.0-100.0); MEAN CORPUSCULAR HEMOGLOBIN 30.4 PG (27.0-34.0); MEAN CORPUSCULAR HGB CONC 35.2 % (32.0-36.0); MEAN PLATELET VOLUME 8.1 FL (7.0-11.0); MONO % 7.3 % (0.0-8.0); NEUT % 87.5 % (16.0-70.0); PLATELET COUNT 327 TH/MM3 (150-450); RED BLOOD COUNT 3.84 MIL/MM3 (4.00-5.30); RED CELL DISTRIBUTION WIDTH 13.4 % (11.6-17.2); WHITE BLOOD COUNT 13.5 TH/MM3 (4.0-11.0)
[2017-11-24] MEDS: LEVOTHYROXINE SODIUM 50 MCG TAB PO SCH (06:25)
[2017-11-24 06:27] LABS: ALBUMIN 2.8 GM/DL (3.4-5.0); ALKALINE PHOSPHATASE 50 U/L (45-117); ALT (GPT) 38 U/L (10-53); AST (GOT) 58 U/L (15-37); BICARBONATE 24.4 MEQ/L (21.0-32.0); BLOOD UREA NITROGEN 9 MG/DL (7-18); CALCIUM 8.6 MG/DL (8.5-10.1); CHLORIDE 101 MEQ/L (98-107); GLOMERULAR FILTRATION RATE 98 ML/MIN (>89); GLUCOSE,RANDOM 97 MG/DL (74-106); SODIUM (NA) 136 MEQ/L (136-145); TOTAL BILIRUBIN ADULT 0.8 MG/DL (0.2-1.0); TOTAL PROTEIN 6.6 GM/DL (6.4-8.2)
[2017-11-24] MEDS: RESP: ALBUTEROL 2.5 MG/3 ML NEB (PRN) INH (07:28)
[2017-11-24] MEDS ORDERED: POTASSIUM CHLORIDE 10 MEQ CONTROLLED RELEASE TAB PO ONE (07:30)
--- NOTE | 2017-11-24 08:18 | RADRPT ---
EXAM DATE: 11/24/2017 8:01 AM EDT AGE/SEX: 72 years / Female INDICATIONS: Cough & congestion. CLINICAL DATA: This is the patient's subsequent encounter. Patient reports that signs and symptoms h ave been present for 2 days and indicates a pain score of 0/10. MEDICAL/SURGICAL HISTORY: Chronic obstructive pulmonary disease. Crohn?s disease. Carcinoma, breast. Hypertension. Colon resection. Right lumpectomy. COMPARISON: [facility], CHEST SINGLE AP, 11/23/2017. . FINDINGS: Scattered emphysematous changes are noted bilaterally. No focal infiltrate is noted. No pulmonary pao ma is noted. The heart is stable. CONCLUSION: 1. Scattered emphysematous changes bilaterally. 2. No acute focal infiltrate or pulmonary vascular congestion. Electronically signed by: Ilia Lazo MD 11/24/2017 8:17 AM EDT
[2017-11-24] MEDS: BUDESONIDE-FORMOTEROL 80/4.5 MCG INHALER INH SCH ×2 (08:48→19:57)
[2017-11-24] MEDS: SODIUM CHLOR 0.9% 1000 ML INJ 1,000 ML IV SCH (08:48)
[2017-11-24] MEDS: SODIUM CHLORIDE 0.9% FLUSH 10 ML FLUSH IV FLUSH SCH ×2 (08:48→19:57)
[2017-11-24] MEDS: amLODIPine BESYLATE 5 MG TAB PO SCH (08:49)
[2017-11-24] MEDS: PANTOPRAZOLE SOD 20 MG DELAYED RELEASE TAB PO SCH (08:49)
[2017-11-24] MEDS: DOCUSATE SODIUM 50 MG/SENNA 8.6 MG TAB PO SCH ×2 (08:50→19:58)
[2017-11-24] MEDS: POTASSIUM CHLOR 20 MEQ PREMIX 100 ML IV SCH ×2 (08:51→10:24)
--- NOTE | 2017-11-24 09:08 | HHI.PR ---
Subjective Remarks Follow-up acute cholecystitis. Patient seen and examined, lying in bed with no pain. States she did sleep well. Does complain of some shortness of breath with exertion. Has been coughing but unable to bring anything up. Eating well with no abdominal pain, nausea or vomiting. She does state that she feels like she is retaining urine. Bladder scan was done showing over 700 mL's of urine. A Stauffer catheter was placed. Urology consulted. Patient denies any history of urinary retention. Objective Vitals Vital Signs Date Time Temp Pulse Resp B/P (MAP) Pulse Ox O2 Delivery O2 Flow Rate FiO2 11/24/17 08:59 99.1 112 19 143/64 (90) 93 11/24/17 07:30 98 Nasal Cannula 1.00 11/24/17 04:00 98.1 120 20 142/65 (90) 94 11/24/17 00:00 98.5 104 20 121/59 (79) 93 11/23/17 20:28 94 Nasal Cannula 1.00 11/23/17 20:00 96.7 106 20 138/65 (89) 93 11/23/17 18:26 19 11/23/17 16:20 94 11/23/17 16:08 98.3 94 14 128/49 (75) 97 Nasal Cannula 2 11/23/17 16:00 98.5 95 19 134/63 (86) 91 11/23/17 15:49 97 14 137/71 (93) 99 Nasal Cannula 2 11/23/17 15:33 98.1 96 14 147/67 (93) 95 Nasal Cannula 3 11/23/17 15:33 96 11/23/17 12:20 99.0 93 20 94 11/23/17 12:00 100.0 103 22 141/67 (91) 93 I/O 11/23/17 11/23/17 11/23/17 11/24/17 11/24/17 11/24/17 07:00 15:00 23:00 07:00 15:00 23:00 Intake Total 1250 ml 100 ml 2130 ml 1374 ml Output Total 20 ml Balance 1250 ml 100 ml 2110 ml 1374 ml Intake Oral 0 ml 30 ml 120 ml IV Total 1250 ml 100 ml 1300 ml 1254 ml Other 800 ml Output Estimated Blood Loss 20 ml Bladder Scan Volume Amount 602 ml # Voids 1 2 Result Diagram: 11/24/1741911/24/17419 Imaging Last Impressions Chest X-Ray 11/24/17 0000 Signed Impressions: CONCLUSION: 1. Scattered emphysematous changes bilaterally. 2. No acute focal infiltrate or pulmonary vascular congestion. Gall Bladder Ultrasound 11/23/17 0000 Signed Impressions: CONCLUSION: Abnormal appearance of gallbladder. Cholelithiasis along with wall thickening a nd a small amount of pericholecystic fluid. Constellation of findings may be se en with acute cholecystitis in the proper clinical setting. Abdomen/Pelvis CT 11/23/17 Signed Impressions: CONCLUSION: 1. Distended gallbladder with diffuse wall thickening indicating possible chol ecystitis. Ultrasound could performed for more sensitive detection of gallstone s. 2. Mild distal ileal wall thickening and with minimal adjacent inflammatory ch radha. 3. Diffuse atherosclerotic disease with mild relative dilatation of the distal abdominal aorta measuring up to 2.5 cm in diameter. Objective Remarks GENERAL: Well-developed, well-nourished patient in NAD. SKIN: Warm and dry. No rash. HEAD: Normocephalic. Atraumatic. EYES: Pupils equal and round. No scleral icterus. No injection or drainage. ENT: No nasal bleeding or discharge. Mucous membranes pink and moist. NECK: Supple. Trachea midline. CARDIOVASCULAR: Regular rate and rhythm. S1, S2 noted. No murmur appreciated. RESPIRATORY: No accessory muscle use. Rhonchi. Breath sounds equal bilaterally. GASTROINTESTINAL: Abdomen soft, non-tender, nondistended. Normoactive bowel sounds x4. Steri-Strips to mid abdomen. MUSCULOSKELETAL: No obvious deformities. Extremities without clubbing, cyanosis , or edema. : Bladder firm. No CVA tenderness. Stauffer catheter present. NEUROLOGICAL: Awake and alert. No obvious cranial nerve deficits. Motor grossly within normal limits. 5/5 muscle strength in bilateral upper and lower extremities. Normal speech. PSYCHIATRIC: Appropriate mood and affect; insight and judgment normal. A/P Problem List: (1) Acute cholecystitis ICD Code: K81.0 - Acute cholecystitis Status: Acute (2) Intractable vomiting ICD Code: R11.10 - Vomiting, unspecified Status: Acute (3) Hypokalemia ICD Code: E87.6 - Hypokalemia Status: Acute Assessment and Plan This is a pleasant 72-year-old female patient with a known medical history of COPD, HTN, hyperlipidemia, Crohn's disease status post small bowel resection x 3 and history of breast cancer with lumpectomy and radiation who presented to the ED with complaints of worsening epigastric abdominal pain. Acute cholecystitis with presence of abdominal pain, nausea and vomiting. Resolved. - Abdomen/pelvis CT reviewed showing distended gallbladder with diffuse wall thickening. Gallbladder ultrasound showing cholelithiasis and small amount of pericholecystic fluid. - Consult placed to general surgery, input and recommendations appreciated. Status post cholecystectomy yesterday. - Encourage p.o. intake. - Will continue Zosyn for now. Patient is afebrile. Mild leukocytosis today. Tachycardic today. Will follow.. No indication of infection at this time. - Pain control with Dilaudid IV as needed for pain scale. - Supportive care Hypokalemia Hypomagnesium - Status post replacement. Potassium 2.9 today. Replacement ordered. Magnesium also replaced today. - Follow BMP. - Compazine available for nausea and vomiting as well as Zofran as needed. Urinary retention - Patient denies any history of urinary retention. This started post surgery. - Bladder scan was over 700 mL's. Patient required straight cath overnight. Stauffer catheter placed today. Tamsulosin started. - Urology consulted, input recommendations pending. - Monitor intake and output. COPD not in exacerbation - Will continue home inhalers. - Patient is requiring supplemental O2, hypoxia is likely secondary to pain medications. Will continue to monitor. Wean Dilaudid IV. - Chest x-ray this morning showing scattered emphysematous changes bilaterally. No infiltrate or congestion. - Added Mucinex for cough and congestion. Hypertension, chronic: Will continue home medications. Monitor blood pressure trends. Hypothyroidism, chronic: Will continue home levothyroxine. DVT prophylaxis: Gifty Orozco Nov 24, 2017 09:08
[2017-11-24] MEDS: MAGNESIUM SULFATE 1 GM PREMIX 100 ML IV SCH ×2 (10:23→10:59)
[2017-11-24] MEDS: TAMSULOSIN HCL 0.4 MG CAP PO SCH (10:59)
--- NOTE | 2017-11-24 11:36 | HHI.PR ---
cc: Heath Turcios MD Subjective Subjective Notes DAILY PROGRESS NOTE FOR SURGICAL ATTENDING, DR. HEATH TURCIOS Resting in bed Low appetite Uneventful night Objective Vitals/I&O Vital Signs Date Time Temp Pulse Resp B/P (MAP) Pulse Ox O2 Delivery O2 Flow Rate FiO2 11/24/17 08:59 99.1 112 19 143/64 (90) 93 11/24/17 07:30 Nasal Cannula 1.00 Labs Laboratory Tests Test 11/24/17 04:20 White Blood Count 13.5 Red Blood Count 3.84 Hemoglobin 11.7 Hematocrit 33.1 Mean Corpuscular Volume 86.3 Mean Corpuscular Hemoglobin 30.4 Mean Corpuscular Hemoglobin Concent 35.2 Red Cell Distribution Width 13.4 Platelet Count 327 Mean Platelet Volume 8.1 Neutrophils (%) (Auto) 87.5 Lymphocytes (%) (Auto) 5.0 Monocytes (%) (Auto) 7.3 Eosinophils (%) (Auto) 0.1 Basophils (%) (Auto) 0.1 Neutrophils # (Auto) 11.8 Lymphocytes # (Auto) 0.7 Monocytes # (Auto) 1.0 Eosinophils # (Auto) 0.0 Basophils # (Auto) 0.0 CBC Comment DIFF FINAL Differential Comment Blood Urea Nitrogen 9 Creatinine 0.60 Random Glucose 97 Total Protein 6.6 Albumin 2.8 Calcium Level 8.6 Alkaline Phosphatase 50 Aspartate Amino Transf (AST/SGOT) 58 Alanine Aminotransferase (ALT/SGPT) 38 Total Bilirubin 0.8 Sodium Level 136 Potassium Level 2.9 Chloride Level 101 Carbon Dioxide Level 24.4 Anion Gap 11 Estimat Glomerular Filtration Rate 98 Magnesium Level 1.3 Radiology Last Impressions Chest X-Ray 11/24/17 0000 Signed Impressions: CONCLUSION: 1. Scattered emphysematous changes bilaterally. 2. No acute focal infiltrate or pulmonary vascular congestion. Gall Bladder Ultrasound 11/23/17 0000 Signed Impressions: CONCLUSION: Abnormal appearance of gallbladder. Cholelithiasis along with wall thickening a nd a small amount of pericholecystic fluid. Constellation of findings may be se en with acute cholecystitis in the proper clinical setting. Abdomen/Pelvis CT 11/23/17 0000 Signed Impressions: CONCLUSION: 1. Distended gallbladder with diffuse wall thickening indicating possible chol ecystitis. Ultrasound could performed for more sensitive detection of gallstone s. 2. Mild distal ileal wall thickening and with minimal adjacent inflammatory ch radha. 3. Diffuse atherosclerotic disease with mild relative dilatation of the distal abdominal aorta measuring up to 2.5 cm in diameter. Cardiovascular: Regular Lungs: Clear Abdomen: Other (lap sites c/d/i ), Post-op tenderness Extremities: No edema A/P Problem List: (1) S/P laparoscopic cholecystectomy ICD Codes: Z90.49 - Acquired absence of other specified parts of digestive tract Status: Acute (2) Acute cholecystitis ICD Codes: K81.0 - Acute cholecystitis Status: Acute (3) Hypokalemia ICD Codes: E87.6 - Hypokalemia Status: Acute (4) Intractable vomiting ICD Codes: R11.10 - Vomiting, unspecified Status: Acute Assessment and Plan 72 year old female POD1 lap lisa -Recheck Hmg/Hct at 1400 -Replace K -Regular diet -Pain control -CXR today -Wean Oxygen -May need to stay again tonight; discussed with Gifty FREEMAN Attending Statement NOTE FOR SURGICAL ATTENDING, DR. HEATH TURCIOS I agree with above assessment and plan. The exam, history, and the medical decision-making described in the above note were completed with the assistance of the mid-level provider. I reviewed and agree with the findings presented. The following services were provided during this hospital visit: Chart data review, vital sign assessments/reviewing monitor data Review of consultations notes if present. Medication orders/review and/or management Ordering and/or reviewing lab tests Ordering and/or interpreting/reviewing x-rays and/or diagnostic studies Care of the patient and discussion of the patient with the care team Documentation time To help prompt me to consider important information that might be impacting today's encounter and assessment, Information from prior notes written by myself or my colleagues may have been "brought forward/copy and pasted" into today's note. Lorie Basurto/Lumber Marker PETE Nov 24, 2017 11:36 Heath Turcios MD Nov 24, 2017 19:25
[2017-11-24] MEDS: ONDANSETRON HCL 4 MG/2 ML VIAL IVP PRN ×2 (12:43→19:58)
[2017-11-24] MEDS ORDERED: ACETAMINOPHEN/HYDROcodone 325 MG/5 MG TAB PO PRN (12:45)
--- NOTE | 2017-11-24 14:19 | PD.CONS ---
HPI Service Urology Consult Requested By Gifty Mix NP Reason for Consult Urinary retention Primary Care Physician Sujata Byers Do, MD Diagnosis: (1) Acute cholecystitis ICD Code: K81.0 - Acute cholecystitis (2) Intractable vomiting ICD Code: R11.10 - Vomiting, unspecified (3) Hypokalemia ICD Code: E87.6 - Hypokalemia History of Present Illness 72-year-old female with multiple medical problems who is postop day #1 from undergoing a laparoscopic cholecystectomy. Postoperatively the patient has been unable to void necessitating an indwelling Stauffer catheter. A urology consult is now placed for further recommendations. Upon further questioning, the patient denies any prior voiding problems. She reports that she has not been ambulating since her surgery. She denies a history of urinary retention in the past. Review of Systems Constitutional: DENIES: Fever, Chills Gastrointestinal: COMPLAINS OF: Abdominal pain Genitourinary: DENIES: Hematuria, Dysuria Musculoskeletal: DENIES: Back pain Except as stated in HPI: all other systems reviewed are Neg Past Family Social History Past Medical History COPD Hypertension Hyperlipidemia Crohn's disease Breast cancer Asthma Anxiety Thyroid disease Past Surgical History Status post recent laparoscopic cholecystectomy Status post colon resection 3 Status post right breast lumpectomy with lymph node removal and radiation therapy Status post tonsillectomy Reported Medications Refer to EMR Allergies: Coded Allergies: No Known Allergies (Verified Allergy, Unknown, 11/23/17) Active Ordered Medications Refer to EMR Family History Mother with history CVA Social History Drinks 1 glass of wine daily Denies tobacco or intravenous drug abuse Physical Exam Vital Signs Date Time Temp Pulse Resp B/P (MAP) Pulse Ox O2 Delivery O2 Flow Rate FiO2 11/24/17 08:59 99.1 112 19 143/64 (90) 93 11/24/17 07:30 98 Nasal Cannula 1.00 11/24/17 04:00 98.1 120 20 142/65 (90) 94 11/24/17 00:00 98.5 104 20 121/59 (79) 93 11/23/17 20:28 94 Nasal Cannula 1.00 11/23/17 20:00 96.7 106 20 138/65 (89) 93 11/23/17 18:26 19 11/23/17 16:20 94 11/23/17 16:08 98.3 94 14 128/49 (75) 97 Nasal Cannula 2 11/23/17 16:00 98.5 95 19 134/63 (86) 91 11/23/17 15:49 97 14 137/71 (93) 99 Nasal Cannula 2 11/23/17 15:33 98.1 96 14 147/67 (93) 95 Nasal Cannula 3 11/23/17 15:33 96 Physical Exam GENERAL: This is a well-nourished, well-developed patient, in no apparent distress. SKIN: No rashes, ecchymoses or lesions. Cool and dry. HEAD: Atraumatic. Normocephalic. No temporal or scalp tenderness. EYES: Pupils equal round and reactive. Extraocular motions intact. No scleral icterus. No injection or drainage. ENT: Nose without bleeding, purulent drainage or septal hematoma. Throat without erythema, tonsillar hypertrophy or exudate. Uvula midline. Airway patent. NECK: Trachea midline. No JVD or lymphadenopathy. Supple, nontender, no meningeal signs. GASTROINTESTINAL: Abdomen soft, non-tender, nondistended. GENITOURINARY: Bladder not distended, Stauffer catheter draining clear yellow urine MUSCULOSKELETAL: Extremities without clubbing, cyanosis, or edema. No joint tenderness, effusion, or edema noted. No calf tenderness. Negative Homans sign bilaterally. NEUROLOGICAL: Awake and alert. Cranial nerves II through XII intact. Motor and sensory grossly within normal limits. Five out of 5 muscle strength in all muscle groups. Normal speech. Lab results reviewed: Yes Laboratory Tests Test 11/24/17 04:20 White Blood Count 13.5 Red Blood Count 3.84 Hemoglobin 11.7 Hematocrit 33.1 Mean Corpuscular Volume 86.3 Mean Corpuscular Hemoglobin 30.4 Mean Corpuscular Hemoglobin Concent 35.2 Red Cell Distribution Width 13.4 Platelet Count 327 Mean Platelet Volume 8.1 Neutrophils (%) (Auto) 87.5 Lymphocytes (%) (Auto) 5.0 Monocytes (%) (Auto) 7.3 Eosinophils (%) (Auto) 0.1 Basophils (%) (Auto) 0.1 Neutrophils # (Auto) 11.8 Lymphocytes # (Auto) 0.7 Monocytes # (Auto) 1.0 Eosinophils # (Auto) 0.0 Basophils # (Auto) 0.0 CBC Comment DIFF FINAL Differential Comment Blood Urea Nitrogen 9 Creatinine 0.60 Random Glucose 97 Total Protein 6.6 Albumin 2.8 Calcium Level 8.6 Alkaline Phosphatase 50 Aspartate Amino Transf (AST/SGOT) 58 Alanine Aminotransferase (ALT/SGPT) 38 Total Bilirubin 0.8 Sodium Level 136 Potassium Level 2.9 Chloride Level 101 Carbon Dioxide Level 24.4 Anion Gap 11 Estimat Glomerular Filtration Rate 98 Magnesium Level 1.3 Result Diagram: 11/24/17 04211/24/17 0420 Imaging Last Impressions Chest X-Ray 11/24/17 0000 Signed Impressions: CONCLUSION: 1. Scattered emphysematous changes bilaterally. 2. No acute focal infiltrate or pulmonary vascular congestion. Gall Bladder Ultrasound 11/23/17 0000 Signed Impressions: CONCLUSION: Abnormal appearance of gallbladder. Cholelithiasis along with wall thickening a nd a small amount of pericholecystic fluid. Constellation of findings may be se en with acute cholecystitis in the proper clinical setting. Abdomen/Pelvis CT 11/23/17 0000 Signed Impressions: CONCLUSION: 1. Distended gallbladder with diffuse wall thickening indicating possible chol ecystitis. Ultrasound could performed for more sensitive detection of gallstone s. 2. Mild distal ileal wall thickening and with minimal adjacent inflammatory ch radha. 3. Diffuse atherosclerotic disease with mild relative dilatation of the distal abdominal aorta measuring up to 2.5 cm in diameter. Assessment and Plan Assessment and Plan Urologic impression: Urinary retention of likely transient nature. Plan: 1. Continue Stauffer catheter to gravity drainage 2. Discontinue Stauffer catheter for voiding trial once patient ambulatory. Edis Salcido MD Nov 24, 2017 14:19
[2017-11-24 15:27] LABS: HEMATOCRIT 34.4 % (35.0-46.0); HEMOGLOBIN 11.4 GM/DL (11.6-15.3)
[2017-11-24] MEDS: guaiFENesin E.R. 600 MG TAB PO SCH (19:57)
[2017-11-24] MEDS: ACETAMINOPHEN/HYDROcodone 325 MG/5 MG TAB PO PRN (19:58)
[2017-11-25] VITALS: BP 117/55; PULSE 101; RESP 18; TEMP 98.4; O2SAT 94
[2017-11-25] MEDS: SODIUM CHLOR 0.9% 1000 ML INJ 1,000 ML IV SCH (02:10)
[2017-11-25] MEDS: ACETAMINOPHEN/HYDROcodone 325 MG/5 MG TAB PO PRN (02:10)
[2017-11-25] MEDS: PIPERACIL-TAZO 3.375 GM PREMIX 50 ML IV SCH ×2 (04:19→10:19)
[2017-11-25 05:06] LABS: AUTOMATED NEUTROPHIL # 8.9 TH/MM3 (1.8-7.7); BASOPHIL % 0.3 % (0.0-2.0); EOSINOPHIL % 0.1 % (0.0-4.0); HEMATOCRIT 33.2 % (35.0-46.0); HEMOGLOBIN 10.8 GM/DL (11.6-15.3); LYMPH % 6.8 % (9.0-44.0); LYMPHOCYTE # 0.7 TH/MM3 (1.0-4.8); MEAN CELL VOLUME 89.7 FL (80.0-100.0); MEAN CORPUSCULAR HEMOGLOBIN 29.2 PG (27.0-34.0); MEAN CORPUSCULAR HGB CONC 32.5 % (32.0-36.0); MEAN PLATELET VOLUME 7.9 FL (7.0-11.0); MONO % 6.4 % (0.0-8.0); MONOCYTE # 0.7 TH/MM3 (0-0.9); NEUT % 86.4 % (16.0-70.0); PLATELET COUNT 323 TH/MM3 (150-450); RED CELL DISTRIBUTION WIDTH 13.3 % (11.6-17.2); WHITE BLOOD COUNT 10.3 TH/MM3 (4.0-11.0)
[2017-11-25 05:12] LABS: BICARBONATE 24.2 MEQ/L (21.0-32.0); CALCIUM 8.5 MG/DL (8.5-10.1)
[2017-11-25 05:13] LABS: MAGNESIUM 1.8 MG/DL (1.5-2.5)
[2017-11-25 05:16] LABS: CREATININE 0.48 MG/DL (0.50-1.00)
[2017-11-25] MEDS: LEVOTHYROXINE SODIUM 50 MCG TAB PO SCH (06:49)
[2017-11-25] MEDS: RESP: ALBUTEROL 2.5 MG/3 ML NEB (PRN) INH (07:46)
[2017-11-25 07:52] VITALS: BP 142/63; PULSE 78; RESP 18; TEMP 96.4; O2SAT 94
--- NOTE | 2017-11-25 08:40 | HHI.DS ---
Discharge Summary Admission Date Nov 23, 2017 at 10:27 Discharge Date: Nov 25, 2017 Admitting Diagnosis ACUTE CHOLECYSTITIS, VOMITING, HYPOKALEMIA (1) Acute cholecystitis ICD Code: K81.0 - Acute cholecystitis Status: Acute (2) Intractable vomiting ICD Code: R11.10 - Vomiting, unspecified Status: Acute (3) Hypokalemia ICD Code: E87.6 - Hypokalemia Status: Acute (4) S/P laparoscopic cholecystectomy ICD Code: Z90.49 - Acquired absence of other specified parts of digestive tract Status: Acute Procedures See below. Brief History - From Admission This is a pleasant 72-year-old female patient with a known medical history of COPD, HTN, hyperlipidemia, Crohn's disease status post small bowel resection x 3 and history of breast cancer with lumpectomy and radiation who presented to the ED with complaints of worsening epigastric abdominal pain. Patient states that she was in her normal state of health up until yesterday morning prior to eating breakfast when she developed an epigastric pain that radiated to her back , was characterized as burning in nature, rated at 10 out of 10 at its worst on pain scale, and did admit to associated nausea and vomiting with the pain. She states she has been unable to eat anything all day yesterday, attempted to eat something small for dinner which actually worsened the pain. Patient denies any recent black or bloody stools. Does admit to good appetite. Denies any recent diarrhea. Denies any recent fever, chills, headache, chest pain, shortness of breath, dysuria. PCP is Dr. Bhardwaj, last seen 2 months ago with no changes to her medicines. Patient follows with fish farm laborer, Dr. Glass, for management of her COPD. Does admit to a history of right breast cancer with history of lumpectomy and lymph node removal as well as radiation in 1994. CBC/BMP: 11/25/17 0422 11/25/17 0422 Significant Findings Laboratory Tests Test 11/22/17 23:10 11/23/17 10:20 11/24/17 04:20 11/24/17 14:39 Neutrophils (%) (Auto) 82.0 % (16.0-70.0) 87.5 % (16.0-70.0) Basophils (%) (Auto) 3.1 % (0.0-2.0) Neutrophils # (Auto) 8.3 TH/MM3 (1.8-7.7) 11.8 TH/MM3 (1.8-7.7) Basophils # (Auto) 0.3 TH/MM3 (0-0.2) Random Glucose 109 MG/DL (74-106) Sodium Level 133 MEQ/L (136-145) Potassium Level 2.8 MEQ/L (3.5-5.1) 2.9 MEQ/L (3.5-5.1) Chloride Level 96 MEQ/L (98-107) Troponin I LESS THAN 0.02 NG/ML White Blood Count 13.5 TH/MM3 (4.0-11.0) Red Blood Count 3.84 MIL/MM3 (4.00-5.30) Hematocrit 33.1 % (35.0-46.0) 34.4 % (35.0-46.0) Lymphocytes (%) (Auto) 5.0 % (9.0-44.0) Lymphocytes # (Auto) 0.7 TH/MM3 (1.0-4.8) Monocytes # (Auto) 1.0 TH/MM3 (0-0.9) Albumin 2.8 GM/DL (3.4-5.0) Aspartate Amino Transf (AST/SGOT) 58 U/L (15-37) Magnesium Level 1.3 MG/DL (1.5-2.5) Hemoglobin 11.4 GM/DL (11.6-15.3) Test 11/25/17 04:22 Red Blood Count 3.70 MIL/MM3 (4.00-5.30) Hemoglobin 10.8 GM/DL (11.6-15.3) Hematocrit 33.2 % (35.0-46.0) Neutrophils (%) (Auto) 86.4 % (16.0-70.0) Lymphocytes (%) (Auto) 6.8 % (9.0-44.0) Neutrophils # (Auto) 8.9 TH/MM3 (1.8-7.7) Lymphocytes # (Auto) 0.7 TH/MM3 (1.0-4.8) Creatinine 0.48 MG/DL (0.50-1.00) Sodium Level 131 MEQ/L (136-145) Imaging Last Impressions Chest X-Ray 11/24/17 Signed Impressions: CONCLUSION: 1. Scattered emphysematous changes bilaterally. 2. No acute focal infiltrate or pulmonary vascular congestion. Gall Bladder Ultrasound 11/23/17 Signed Impressions: CONCLUSION: Abnormal appearance of gallbladder. Cholelithiasis along with wall thickening a nd a small amount of pericholecystic fluid. Constellation of findings may be se en with acute cholecystitis in the proper clinical setting. Abdomen/Pelvis CT 11/23/17 Signed Impressions: CONCLUSION: 1. Distended gallbladder with diffuse wall thickening indicating possible chol ecystitis. Ultrasound could performed for more sensitive detection of gallstone s. 2. Mild distal ileal wall thickening and with minimal adjacent inflammatory ch radha. 3. Diffuse atherosclerotic disease with mild relative dilatation of the distal abdominal aorta measuring up to 2.5 cm in diameter. PE at Discharge GENERAL: Well-developed, well-nourished patient in NAD. SKIN: Warm and dry. No rash. HEAD: Normocephalic. Atraumatic. EYES: Pupils equal and round. No scleral icterus. No injection or drainage. ENT: No nasal bleeding or discharge. Mucous membranes pink and moist. NECK: Supple. Trachea midline. CARDIOVASCULAR: Regular rate and rhythm. S1, S2 noted. No murmur appreciated. RESPIRATORY: No accessory muscle use. Rhonchi. Breath sounds equal bilaterally. GASTROINTESTINAL: Abdomen soft, non-tender, nondistended. Normoactive bowel sounds x4. Steri-Strips to mid abdomen. MUSCULOSKELETAL: No obvious deformities. Extremities without clubbing, cyanosis , or edema. : Bladder firm. No CVA tenderness. Stauffer catheter present. NEUROLOGICAL: Awake and alert. No obvious cranial nerve deficits. Motor grossly within normal limits. 5/5 muscle strength in bilateral upper and lower extremities. Normal speech. PSYCHIATRIC: Appropriate mood and affect; insight and judgment normal. Pt update on day of discharge Follow-up acute cholecystitis status post cholecystectomy and urinary retention. Patient seen and examined, ambulating in room with PT. Patient denies any shortness of breath, breathing more comfortably today. On room air with adequate saturations. Stauffer catheter removed around 04 100 this morning, has voided since. Patient symptoms much improved. Tolerating p.o. intake well , no abdominal pain, nausea or vomiting. Plan will be to go home today with follow-up with PCP and general surgery upon discharge. Hospital Course This is a pleasant 72-year-old female patient with a known medical history of COPD, HTN, hyperlipidemia, Crohn's disease status post small bowel resection x 3 and history of breast cancer with lumpectomy and radiation who presented to the ED with complaints of worsening epigastric abdominal pain. Patient with acute cholecystitis with presence of abdominal pain, nausea and vomiting. Abdomen/pelvis CT reviewed showing distended gallbladder with diffuse wall thickening. Gallbladder ultrasound showing cholelithiasis and small amount of pericholecystic fluid. General surgery followed patient during hospitalization , status post cholecystectomy 11/23/17. Patient tolerating p.o. intake with no nausea or vomiting. Patient was started on Zosyn and continued during hospitalization. Urinary retention was noted postoperatively, urology and to see patient, has improved with ambulation and Stauffer catheter placement. Voiding trials performed prior to discharge, patient is urinating without any retention. Pain is well controlled upon discharge. Electrolytes were replaced with hypokalemia upon presentation. All have resolved upon discharge. Patient does have a history of COPD, this was not an exacerbation during hospitalization although patient did require supplemental O2 with mild hypoxia secondary to pain medications. Patient was weaned off oxygen and doing well on room air. Chest x-ray was done showing scattered emphysematous changes. No infiltrate or congestion. Patient did have a cough, Mucinex was added. Patient with a history of hypertension and hypothyroidism which were all stable during hospitalization. Pt Condition on Discharge: Stable Discharge Disposition: Discharge Home Discharge Time: > 30 minutes Discharge Instructions DIET: Follow Instructions for: As Tolerated, No Restrictions Speech Therapy-Diet Recommends: Regular Activities you can perform: Regular-No Restrictions Follow up Referrals: Surgical - 12/01/17 with Heath Rea MD Appt set for December 01 at 10:40AM Gifty Mix Nov 25, 2017 08:40
[2017-11-25] MEDS: PANTOPRAZOLE SOD 20 MG DELAYED RELEASE TAB PO SCH (09:00)
[2017-11-25] MEDS: SODIUM CHLORIDE 0.9% FLUSH 10 ML FLUSH IV FLUSH SCH (09:00)
[2017-11-25] MEDS: DOCUSATE SODIUM 50 MG/SENNA 8.6 MG TAB PO SCH (09:00)
[2017-11-25] MEDS: amLODIPine BESYLATE 5 MG TAB PO SCH (09:00)
[2017-11-25] MEDS: guaiFENesin E.R. 600 MG TAB PO SCH (09:01)
[2017-11-25] MEDS: BUDESONIDE-FORMOTEROL 80/4.5 MCG INHALER INH SCH (09:01)
[2017-11-25] MEDS: TAMSULOSIN HCL 0.4 MG CAP PO SCH (09:01)
--- NOTE | 2017-11-25 10:00 | HHI.PR ---
cc: Heath Turcios MD Subjective Subjective Notes DAILY PROGRESS NOTE FOR SURGICAL ATTENDING, DR. HEATH TURCIOS Feeling better Sitting on the side of the bed eating breakfast Stauffer removed; has voided Objective Vitals/I&O Vital Signs Date Time Temp Pulse Resp B/P (MAP) Pulse Ox O2 Delivery O2 Flow Rate FiO2 11/25/17 07:52 96.4 78 18 142/63 (89) 94 11/24/17 07:30 Nasal Cannula 1.00 Labs Laboratory Tests Test 11/24/17 14:39 11/25/17 04:22 Hemoglobin 11.4 10.8 Hematocrit 34.4 33.2 White Blood Count 10.3 Red Blood Count 3.70 Mean Corpuscular Volume 89.7 Mean Corpuscular Hemoglobin 29.2 Mean Corpuscular Hemoglobin Concent 32.5 Red Cell Distribution Width 13.3 Platelet Count 323 Mean Platelet Volume 7.9 Neutrophils (%) (Auto) 86.4 Lymphocytes (%) (Auto) 6.8 Monocytes (%) (Auto) 6.4 Eosinophils (%) (Auto) 0.1 Basophils (%) (Auto) 0.3 Neutrophils # (Auto) 8.9 Lymphocytes # (Auto) 0.7 Monocytes # (Auto) 0.7 Eosinophils # (Auto) 0.0 Basophils # (Auto) 0.0 CBC Comment DIFF FINAL Differential Comment Blood Urea Nitrogen 11 Creatinine 0.48 Random Glucose 88 Calcium Level 8.5 Magnesium Level 1.8 Sodium Level 131 Potassium Level 3.5 Chloride Level 98 Carbon Dioxide Level 24.2 Anion Gap 9 Estimat Glomerular Filtration Rate 126 Radiology Last Impressions Chest X-Ray 11/24/17 Signed Impressions: CONCLUSION: 1. Scattered emphysematous changes bilaterally. 2. No acute focal infiltrate or pulmonary vascular congestion. Gall Bladder Ultrasound 11/23/17 0000 Signed Impressions: CONCLUSION: Abnormal appearance of gallbladder. Cholelithiasis along with wall thickening a nd a small amount of pericholecystic fluid. Constellation of findings may be se en with acute cholecystitis in the proper clinical setting. Abdomen/Pelvis CT 11/23/17 0000 Signed Impressions: CONCLUSION: 1. Distended gallbladder with diffuse wall thickening indicating possible chol ecystitis. Ultrasound could performed for more sensitive detection of gallstone s. 2. Mild distal ileal wall thickening and with minimal adjacent inflammatory ch radha. 3. Diffuse atherosclerotic disease with mild relative dilatation of the distal abdominal aorta measuring up to 2.5 cm in diameter. Cardiovascular: Regular Lungs: Clear Abdomen: Non-distended, Other (lap sites c/d/i ) Extremities: No edema A/P Problem List: (1) S/P laparoscopic cholecystectomy ICD Codes: Z90.49 - Acquired absence of other specified parts of digestive tract Status: Acute (2) Acute cholecystitis ICD Codes: K81.0 - Acute cholecystitis Status: Acute (3) Hypokalemia ICD Codes: E87.6 - Hypokalemia Status: Acute (4) Intractable vomiting ICD Codes: R11.10 - Vomiting, unspecified Status: Acute Assessment and Plan 72 year old female POD2 lap lisa -Regular diet -Pain control -Wean Oxygen if able -GS clear for DC -Follow up in the office Attending Statement NOTE FOR SURGICAL ATTENDING, DR. HEATH TURCIOS I agree with above assessment and plan. The exam, history, and the medical decision-making described in the above note were completed with the assistance of the mid-level provider. I reviewed and agree with the findings presented. I attest that I had a [id number] encounter with the patient on the same day, and personally performed and documented my assessment and findings in the medical record. The following services were provided during this hospital visit: Chart data review, vital sign assessments/reviewing monitor data Review of consultations notes if present. Medication orders/review and/or management Ordering and/or reviewing lab tests Ordering and/or interpreting/reviewing x-rays and/or diagnostic studies Care of the patient and discussion of the patient with the care team Documentation time To help prompt me to consider important information that might be impacting today's encounter and assessment, Information from prior notes written by myself or my colleagues may have been "brought forward/copy and pasted" into today's note. Lorie Basurto/Antenna Specialist PETE Nov 25, 2017 10:00 Heath Turcios MD Nov 25, 2017 12:16
[2017-11-25] MEDS ORDERED: HYDR-3516 PO (11:06)
[2017-11-25 11:33] VITALS: BP 160/73; PULSE 98; RESP 18; TEMP 98.1; O2SAT 95
== END 2017-11-25 12:33 | disposition home or self-care (01) | DRG 418 ==
LOC: PHED 22:24 → PHEDA 11-23 01:44 → PHEDH 11-23 05:44 → PH3A 11-23 07:53 → OBSVTOIN 11-23 10:27
PROVIDERS: ADMIT Hospitalist; ATTEND Hospitalist
PROC: 0JN83ZZ Release Abdomen Subcutaneous Tissue and Fascia, Percutaneous Approach (ICD-10-PCS; 2017-11-23)
PROC: 0FT44ZZ Resection of Gallbladder, Percutaneous Endoscopic Approach (ICD-10-PCS; principal; 2017-11-23 14:10)
PROC: 0T9B70Z Drainage of Bladder with Drainage Device, Via Natural or Artificial Opening (ICD-10-PCS; 2017-11-24)
DX: K80.12 Calculus of gallbladder with acute and chronic cholecystitis without obstruction (principal); K50.90 Crohn's disease, unspecified, without complications; J44.9 Chronic obstructive pulmonary disease, unspecified; K66.0 Peritoneal adhesions (postprocedural) (postinfection); K80.10 Calculus of gallbladder with chronic cholecystitis without obstruction; I10 Essential (primary) hypertension; E78.5 Hyperlipidemia, unspecified; Z92.3 Personal history of irradiation; E03.9 Hypothyroidism, unspecified; E83.42 Hypomagnesemia; E87.6 Hypokalemia; T50.995A Adverse effect of other drugs, medicaments and biological substances, initial encounter; R09.02 Hypoxemia; R33.9 Retention of urine, unspecified; R11.10 Vomiting, unspecified; Z90.49 Acquired absence of other specified parts of digestive tract; Z85.3 Personal history of malignant neoplasm of breast
CPT/HCPCS: 71045; 74177; 76705; 80048; 80053; 83605; 83735; 84132; 84484; 85014; 85018; 85025; 88304; 93005; 94150; 94640; 94664; 96361; 96374; 96375; J0780; J1170; J2270; J2405; J2543; J3010; J3475; J3480; J7030; J7120; J7613; Q9967